=== PATIENT | female | born 1985 | race Caucasian/White ===

== ENCOUNTER → 2016-08-22 | Outpatient (CLI) | payer OTHER ==
[~2016-08-22] MED LIST: MTR600X PO
[2016-08-22 19:00] LABS: URINE APPEARANCE CLEAR (CLEAR); URINE BILIRUBIN NEG (NEG); URINE COLOR YELLOW; URINE EPITHELIAL CELL AUTO >30 /lpf (0-5); URINE NITRITE NEG (NEG); URINE SPECIFIC GRAVITY 1.022 (1.000-1.030); UROBILINOGEN NEG (NEG)
[2016-08-22 19:05] LABS: MANUAL MICROSCOPIC REQUIRED? NO; REVIEW REQ? NO
== END | disposition home or self-care (01) ==
LOC: C.LABSPEC 16:01
PROVIDERS: ATTEND Obstetrics & Gynecology
DX: O09.299 Supervision of pregnancy with other poor reproductive or obstetric history, unspecified trimester (principal)

== ENCOUNTER → 2016-08-29 | Outpatient (CLI) | payer OTHER ==
[2016-09-02 07:06] LABS: CHLAMYDIA TRACH RNA*** NOT DETECTED (NOT DETECTED); GC (NEIS GONORRHOEAE)RNA** NOT DETECTED (NOT DETECTED)
== END | disposition home or self-care (01) ==
LOC: C.LABSPEC 16:30
PROVIDERS: ATTEND Obstetrics & Gynecology
DX: O09.299 Supervision of pregnancy with other poor reproductive or obstetric history, unspecified trimester (principal); Z3A.00 Weeks of gestation of pregnancy not specified

== ENCOUNTER → 2016-08-29 | Outpatient (CLI) | payer OTHER | END | disposition home or self-care (01) | LOC: C.PAPS 08:48 | PROVIDERS: ATTEND Obstetrics & Gynecology | DX: O09.299 Supervision of pregnancy with other poor reproductive or obstetric history, unspecified trimester (principal); Z3A.00 Weeks of gestation of pregnancy not specified ==

== ENCOUNTER → 2016-08-29 | Outpatient (CLI) | payer OTHER ==
[2016-08-29 17:46] LABS: BASO % 0.2 %; BASO ABS # 0.02 K/uL (0-0.2); COMPLETE YES; EOS % 1.4 %; HEMATOCRIT 39.1 % (37-47); IG% 0.3 %; LYMPH % 27.7 %; LYMPH ABS # 3.01 K/uL (1.2-3.4); MEAN CELL VOLUME 91.6 fL (80-100); MEAN CORPUSCULAR HEMOGLOBIN 30.7 pg (25-34); MEAN CORPUSCULAR HGB CONC 33.5 g/dl (32-36); MEAN PLATELET VOLUME 11.4 fL (7.4-10.4); MONO % 7.1 %; NEUT % 63.3 %; PLATELET COUNT 277 K/uL (130-400); RED BLOOD COUNT 4.27 M/uL (4.2-5.4); WHITE BLOOD COUNT 10.88 K/uL (4.8-10.8)
== END | disposition home or self-care (01) ==
LOC: C.LAB1850 15:46
PROVIDERS: ATTEND Obstetrics & Gynecology
DX: O09.299 Supervision of pregnancy with other poor reproductive or obstetric history, unspecified trimester (principal); Z3A.00 Weeks of gestation of pregnancy not specified

== ENCOUNTER → 2016-10-26 | Outpatient (CLI) | payer OTHER ==
[2016-10-26 17:45] LABS: GTGD 50 Grams
== END | disposition home or self-care (01) ==
LOC: C.LAB1850 14:32
PROVIDERS: ATTEND Obstetrics & Gynecology
DX: O09.291 Supervision of pregnancy with other poor reproductive or obstetric history, first trimester (principal); Z3A.00 Weeks of gestation of pregnancy not specified

== ENCOUNTER → 2017-01-16 | Outpatient (CLI) | payer OTHER ==
[2017-01-16 15:37] LABS: HEMATOCRIT 34.2 % (37-47)
[2017-01-16 16:48] LABS: MANUAL MICROSCOPIC REQUIRED? YES; URINE APPEARANCE TURBID (CLEAR); URINE BILIRUBIN NEG (NEG); URINE COLOR YELLOW; URINE NITRITE NEG (NEG); UROBILINOGEN NEG (NEG)
[2017-01-16 16:52] LABS: REVIEW REQ? NO
[2017-01-16 17:30] LABS: URINE AMORPHOUS SEDIMENT PRESENT (NONE PRSENT); URINE BACTERIA NEG (NEG); URINE RBC 0-4 /hpf (0-4)
[2017-01-16 19:25] LABS: GTGD 50 Grams
== END | disposition home or self-care (01) ==
LOC: C.LAB1850 14:24
PROVIDERS: ATTEND Obstetrics & Gynecology
DX: Z34.83 Encounter for supervision of other normal pregnancy, third trimester (principal); Z3A.00 Weeks of gestation of pregnancy not specified

== ENCOUNTER → 2017-03-13 | Outpatient (CLI) | payer OTHER | END | disposition home or self-care (01) | LOC: C.LABSPEC 16:13 | PROVIDERS: ATTEND Obstetrics & Gynecology | DX: Z34.83 Encounter for supervision of other normal pregnancy, third trimester (principal); Z3A.00 Weeks of gestation of pregnancy not specified ==

== ENCOUNTER 2017-03-28 19:31 | Inpatient (IN) | payer OTHER ==
[~2017-03-28] VITALS: Ht 162.6 cm; Wt 68.2 kg
[2017-03-28] MEDS ORDERED: LACTATED RINGER'S 1000ML 1,000 ML IV SCH (20:12)
[2017-03-28] MEDS ORDERED: LACTATED RINGER'S 1000ML 1,000 ML IV PRN (20:12)
[2017-03-28 20:41] LABS: HEMATOCRIT 36.5 % (37-47); HEMOGLOBIN 12.2 g/dL (12.0-16.0); MEAN CORPUSCULAR HEMOGLOBIN 29.4 pg (25-34); MEAN CORPUSCULAR HGB CONC 33.4 g/dl (32-36); MEAN PLATELET VOLUME 11.6 fL (7.4-10.4); PLATELET COUNT 319 K/uL (130-400); RED CELL DISTRIBUTION WIDTH CV 13.7 % (11.5-14.5); RED CELL DISTRIBUTION WIDTH SD 43.9 fL (36.4-46.3); WHITE BLOOD COUNT 14.87 K/uL (4.8-10.8)
[2017-03-28 20:45] VITALS: Ht 162.6 cm; Wt 68.2 kg
[2017-03-28] MEDS ORDERED: EpHEDrine SULFATE INJ 50 MG/ML AMP ONE (21:06)
[2017-03-28] MEDS ORDERED: BUPIVACAINE 0.25% 30 ML VIAL ONE (21:06)
[2017-03-28] MEDS ORDERED: FENTANYL 2MCG/ML ROPIV 1.25MG/ML 100ML BAG EPI ONE (21:07)
[2017-03-28] MEDS ORDERED: FENTANYL CITRATE INJ 50 MCG/1 ML 2 ML VIAL ONE (21:07)
[2017-03-28] MEDS ORDERED: NALOXONE HCL INJ 1 MG in SODIUM CHLORIDE 0.9% 1000ML 1,000 ML IV PRN (22:03)
[2017-03-28] MEDS ORDERED: LACTATED RINGER'S 1000ML 500 ML IV PRN (22:03)
[2017-03-28] MEDS ORDERED: NALOXONE HCL INJ 0.4 MG/1 ML VIAL/CARP IV PRN (22:15)
[2017-03-28] MEDS ORDERED: EpHEDrine SULFATE INJ 50 MG/ML AMP IV PRN (22:15)
[2017-03-28] MEDS ORDERED: FENTANYL 2MCG/ML ROPIV 1.25MG/ML 100ML BAG EPI PRN (22:15)
[2017-03-28] MEDS ORDERED: DiphenhydrAMINE HCL 50 MG/ML VIAL IV PRN (22:15)
[2017-03-28] MEDS ORDERED: NALBUPHINE HCL INJ 10 MG/ML AMP IV PRN (22:15)
[2017-03-28] MEDS ORDERED: PRENCAP38 PO (22:51)
[2017-03-28] MEDS ORDERED: OXYTOCIN 30 UNITS/500ML NSS IV ONE (23:40)
[2017-03-29] VITALS (7 sets, daily range): BP systolic 108–144; BP diastolic 68–88; PULSE 73–92; TEMP 36.4–36.7; O2SAT 97–100
[2017-03-29] MEDS ORDERED: LACTATED RINGER'S 1000ML 1,000 ML IV SCH (05:26)
[2017-03-29] MEDS ORDERED: IBUPROFEN 600 MG TAB ONE (05:28)
[2017-03-29] MEDS ORDERED: ACETAMINOPHEN 325 MG TAB PO PRN (05:30)
[2017-03-29] MEDS ORDERED: LANOLIN OINT EXT PRN (05:30)
[2017-03-29] MEDS ORDERED: OXYTOCIN 30 UNITS/500ML NSS IV PRN (05:30)
[2017-03-29] MEDS ORDERED: SUPERCREAM 0.870 % 15GM JAR EXT PRN (05:30)
[2017-03-29] MEDS ORDERED: HYDROCORTISONE ACETATE 25 MG SUPP PR PRN (05:30)
[2017-03-29] MEDS ORDERED: OXYCODONE/ACETAMINOPHEN 5-325 TAB PO PRN (05:30)
[2017-03-29] MEDS ORDERED: BENZOCAINE 20% AER SPR 82.5 GM CAN EXT PRN (05:30)
--- NOTE | 2017-03-29 06:13 | Anesthesia Procedure Note ---
Anesthesia Epidural Removal Nt Date & Time Mar 29, 2017 at 06:13 Vital Signs Pain Intensity: 3.0 Vital Signs Past 12 Hours Date Time Temp Pulse Resp B/P (MAP) Pulse Ox O2 Delivery O2 Flow Rate FiO2 03/29/17 05:00 36.5 77 18 116/76 (89) 03/29/17 01:40 Room Air 03/29/17 01:40 36.6 87 18 120/81 (94) Notes Mental Status: alert / awake / arousable, participated in evaluation Nausea / Vomiting: adequately controlled Pain: adequately controlled Airway Patency, RR, SpO2: stable & adequate BP & HR: stable & adequate Hydration State: stable & adequate Neuraxial Anesthesia: was administered, sensory block is resolved Anesthetic Complications: no major complications apparent, pt satisfied with anesthetic care Epidural: removed without complications, with tip intact
[2017-03-29] MEDS: PRENATAL VITAMIN TAB PO SCH (08:39)
[2017-03-29] MEDS: DOCUSATE SODIUM 100 MG CAP PO SCH ×2 (08:39→19:45)
--- NOTE | 2017-03-29 08:40 | Discharge Instructions ---
Discharge Instructions Date of Service Mar 29, 2017. Admission Reason for Admission: Check Labor Discharge Discharge Diagnosis / Problem: Vaginal Delivery Discharge Goals Goal(s): Routine recovery after delivery Medications Continue Dispensed Medications: supercream, dermaplast, tucks, lansinoh Activity Recommendations Activity Limitations: per Instructions/Follow-up section . Instructions / Follow-Up Instructions / Follow-Up ACTIVITY RECOMMENDATIONS: * Gradual return to full activity over the next 2-3 weeks. * No lifting - nothing heavier than baby over the next 2-3 weeks. * Do not engage in vigorous exercise, sexual activity or sports until cleared by your physician. * Do not drive or operate any motorized equipment until cleared by your physician. * You may shower/bathe daily. MEDICATIONS: For discomfort or pain, you may use Acetaminophen (Tylenol), Ibuprofen (Advil), or Naproxen (Aleve) following the package directions. For constipation you may use Colace following the package directions. BREAST CARE: If you are not breast feeding: * Wear a supportive bra 24 hours a day for one to two weeks. * Avoid stimulating your breasts and nipples as much as possible during the first few weeks after delivery. * When taking a shower, have the warm water hit your back, not breasts. * When your breasts feel full, apply ice packs. Usually three to four times a day helps ease the discomfort. * Take a mild pain medication (Tylenol / Motrin) when you are uncomfortable. If breast feeding: * Use breast milk to lubricate nipples. Lansinoh cream may be used for sore nipples. You do not need to remove cream prior to breast feeding. If using a different brand of cream, check the label for directions regarding removal of cream prior to nursing. * Wear a supportive bra. * If having problems with breasts or breast feeding, call a construction safety consultant or your health care provider. EPISIOTOMY CARE: After delivery, if you have an episiotomy (stitches), the following steps will ease discomfort and aid healing. * For the first 24 hours after delivery, place ice packs next to your episiotomy to help reduce swelling. * After the first 24 hour-period, sitz baths, either portable or in the tub, are suggested. A shower with a shower arm sprayed over the episiotomy may be comforting. * Katharine care should be done after each voiding and bowel movement. Squirt warm water from a plastic bottle over the perineum (region of the body between the anus and urinary opening) and pat dry. * Use Dermoplast to ease discomfort. Shake container. [place] directly over the episiotomy. Place a Tucks on a clean sanitary pad next to your episiotomy. SPECIAL CARE INSTRUCTIONS: When you are discharged from the hospital, it is important for you to follow the instructions listed below: * During the first week at home, you should be able to care for yourself and your baby. In addition, the usual light household activities are encouraged. * Limit your activities to the way you feel. Do not try to clean the house or move furniture. Be sensible. * If you actively engage in sports and have done so up until the time of your delivery, you may resume these activities as soon as you feel able. This may take up to one month or even longer. Use good judgment. * Continue to take your vitamins for at least six weeks after the of your baby. * Your diet need not be limited unless you were on a special diet before your delivery. Breast-feeding mothers need around 2500 calories per day and at least 64-80 ounces of fluid per day (8 to 10 glasses). * You should eat foods from the four major food groups. Crash diets or fad diets are to be avoided. Eating lean meats, fresh fruits and vegetables, low-fat dairy products, high fiber foods and a regular exercise program, will help you get back to your pre- weight without putting your health at risk. * Constipation is sometimes a problem after delivery. Take a mild laxative as needed. If breast feeding, Milk of Magnesia is acceptable to use. You may use a suppository or Fleets enema if no episiotomy. * A daily shower or tub bath is suggested. Be sure to thoroughly and gently dry the perineum. * A bloody vaginal discharge will usually continue until around four weeks post . A small amount of bleeding may continue for as long as six weeks. Vaginal discharge changes from the bright red bleeding after delivery to pink then brownish and finally yellowish-pink before becoming white and disappearing. * Bleeding may increase with activity. Your first period may come in 4-8 weeks. If you are breast feeding, your period may be delayed even longer. * [place] (sex) can begin whenever both you and your partner feel comfortable and do not have any form of genital infection. It is recommended that you wait at least six weeks for internal and external healing to occur. If you have questions, please talk to your health care practitioner. A condom should be used to prevent infection and . * Foreplay, gentle intercourse and lubrication is very important the first several times to prevent pain. A water-based lubricant such as K-Y jelly or Astroglide may be used. * If you have RH negative blood and your baby is RH positive, you will receive RHOGAM by injection prior to discharge. The nurse will give you a card to keep with you that has the date and place that you received RHOGAM after delivery. * During your care, you had a Rubella screen done to check for the presence of rubella antibodies in your blood. If your test was negative, you will receive a Rubella vaccine prior to discharge. This vaccine may cause a fever, soreness at the injection site and flu-like symptoms. If these symptoms persist, notify your health care practitioner. is not advised for one month after a Rubella vaccine. * Verbalizes understanding of car seat law as reviewed with patient nursing. * Car Seat hand-out given and reviewed with patient by nursing. * Shaken baby information reviewed with patient by nursing. Call you doctor if: * Heavy bleeding (saturating several pads an hour) or passing clots the size of your fist. * A fever >101 degrees F (38.3 degrees C) on two occasions four hours apart and /or chills. * Unusual pain in the pelvic or vaginal areas. * "Baby Blues" lasting longer than two weeks. If you have any questions or concerns, call your health care practitioner at . FOLLOW UP VISIT: * Please call the office at to schedule a 6 week examination. It is important you keep this appointment. It is important for you to make arrangements for either yearly or twice yearly check-ups thereafter. Current Hospital Diet Patient's current hospital diet: Regular OB Diet Discharge Diet Recommended Diet: Regular Diet Pending Studies Studies pending at discharge: no Medical Emergencies . Who to Call and When: Medical Emergencies: If at any time you feel your situation is an emergency, please call 911 immediately. . Non-Emergent Contact Non-Emergency issues call your: Primary Care Provider . . "Provider Documentation" section prepared by Tomás Mcnair. . VTE Core Measure Inpt VTE Proph given/why not?: Treatment not indicated
[2017-03-29] MEDS: IBUPROFEN 600 MG TAB PO PRN ×3 (12:44→23:38)
[2017-03-30] MEDS: IBUPROFEN 600 MG TAB PO PRN ×2 (06:30→14:05)
--- NOTE | 2017-03-30 06:43 | Progress Note ---
Subjective Mar 30, 2017. Subjective conversation w/ patient (Patient seen and examined at the bedside. No complaints reported) Ambulation: ambulating normally Voiding: no voiding problems Passing Gas: Yes Diet Tolerance: Regular Diet Lochia: Moderate Feeding Type: Breast Feeding Pain: 3/10 in severity, well controlled with pain meds Review of Systems Constitutional: No fever, No chills, No sweats Respiratory: No cough, No shortness of breath Cardiac: No chest pain, No edema Breast: + breast pain (mild pain w/) Abdomen: No pain, No nausea, No vomiting Female : No dysuria Objective Vital Signs Date Time Temp Pulse Resp B/P (MAP) Pulse Ox O2 Delivery O2 Flow Rate FiO2 03/29/17 23:30 Room Air 03/29/17 23:30 36.7 76 18 115/75 (88) Room Air 03/29/17 19:45 36.6 92 16 108/68 (81) Room Air 03/29/17 15:25 Room Air 03/29/17 15:25 36.4 78 16 116/76 (89) Room Air 03/29/17 11:55 36.5 73 18 144/88 (106) 100 Room Air 03/29/17 07:45 Room Air 03/29/17 07:45 36.5 73 18 121/76 (91) 97 Room Air Physical Exam General Appearance: WELL-APPEARING, WD/WN, NO APPARENT DISTRESS Respiratory/Chest: chest non-tender, lungs clear, normal breath sounds, no respiratory distress, no accessory muscle use Cardiovascular: regular rate, rhythm, no edema, no gallop, no JVD, no murmur Abdomen: normal bowel sounds, non tender, soft Fundus: Firm, Non-Tender, Relation to Umbilicus (1 cm below) Extremities: non-tender, normal inspection, no pedal edema, no calf tenderness Laboratory Results Last 24 Hours Test 03/30/17 06:34 Medications Current Inpatient Medications Medications (Trade) Dose Ordered Sig/Moe Route Start Time Stop Time Status Last Admin Dose Admin Lactated Ringer's 1,000 ml @ 125 mls/hr Q8H IV 03/28/17 20:12 03/30/17 20:11 03/28/17 20:53 125 MLS/HR Lactated Ringer's 1,000 ml @ 999 mls/hr Q1H1M PRN IV 03/28/17 20:12 04/27/17 20:11 03/28/17 20:57 999 MLS/HR Lactated Ringer's 1,000 ml @ 125 mls/hr Q8H IV 03/29/17 05:26 04/28/17 05:25 Oxytocin (Pitocin IV) 30 units UD PRN IV 03/29/17 05:30 04/28/17 05:29 Benzocaine (Dermoplast Aero Spr) 1 appln PRN PRN EXT 03/29/17 05:30 04/28/17 05:29 Cocaine HCl (Supercream 0.870% Cr) BID PRN EXT 03/29/17 05:30 04/12/17 05:29 Hydrocortisone Acetate (Anusol Hc Supp) 25 mg BID PRN TX 03/29/17 05:30 04/28/17 05:29 Lanolin (Lanolin Oint) PRN PRN EXT 03/29/17 05:30 04/28/17 05:29 Prenat Multivit/ Student Services Coordinator/Iron/Folic Ac ( Vitamin Tab) 1 tab DAILY PO 03/29/17 08:00 04/28/17 07:59 03/29/17 08:39 1 TAB Ibuprofen (Motrin Tab) 600 mg Q4H PRN PO 03/29/17 05:30 04/28/17 05:29 03/30/17 06:30 600 MG Acetaminophen (Tylenol Tab) 650 mg Q6H PRN PO 03/29/17 05:30 04/28/17 05:29 03/29/17 19:48 650 MG Oxycodone/ Acetaminophen (Percocet 5-325mg Tab) 1 tab Q4H PRN PO 03/29/17 05:30 04/12/17 05:29 Docusate Sodium (coLACE CAP) 100 mg BID PO 03/29/17 08:00 04/28/17 07:59 03/29/17 19:45 100 MG Assessment and Plan Post- Day#: 1 Continue Routine Care: 32 year old [id number] s/p NVD day 1 - patient doing well clinically - O+, rubella immune, GBS -ve - continue encouraging ambulation and - monitor lochia - vitals reviewed and wnl - continue analgesia prn - Hgb 12.2 on arrival, will check today's Hgb when available - will res counselor pt on discharge instructions as she is ready for d/c today Resident Physician Supervision Note: I interviewed and examined the patient. Discussed with Dr. Mcnair and agree with findings and plan as documented in the note. Any exceptions or clarifications are listed here: [None] Documented By: Ruben Riojas Resident Tracking Resident Involvement: Resident Care Provided Care Provided: OB Delivery
[2017-03-30 06:48] LABS: HEMATOCRIT 30.8 % (37-47)
[2017-03-30] MEDS: DOCUSATE SODIUM 100 MG CAP PO SCH (07:43)
[2017-03-30] MEDS: PRENATAL VITAMIN TAB PO SCH (07:43)
[2017-03-30 07:45] VITALS: BP 115/74; PULSE 67; TEMP 36.3
[2017-03-30 15:02] VITALS: BP_DIAS 74; PULSE 67; TEMP 36.3
--- NOTE | 2017-04-12 07:46 | Vaginal Delivery Summary ---
Vaginal Delivery Summary Renuka Herzog underwent an uncomplicated at 2336pm. See QS documentation for further details. Mother and tolerated delivery well.
== END 2017-03-30 15:02 | disposition home or self-care (01) | DRG 775 ==
LOC: C.OPB 19:31 → C.LD 19:31 → C.OPB 20:13 → C.OBG 03-29 01:46
PROVIDERS: ADMIT Obstetrics & Gynecology; ATTEND Obstetrics & Gynecology
PROC: 10E0XZZ Delivery of Products of Conception, External Approach (ICD-10-PCS; principal; 2017-03-28)
DX: O80 Encounter for full-term uncomplicated delivery (principal); Z3A.38 38 weeks gestation of pregnancy; Z37.0 Single live birth

== ENCOUNTER 2017-05-23 20:38 | Emergency (ER) | payer OTHER ==
[~2017-05-23] VITALS: Ht 162.6 cm; Wt 63.0 kg
[~2017-05-23 20:38] MED LIST changes: +PRENCAP38 PO
[2017-05-23 20:46] VITALS: TEMP 36.8; Ht 162.6 cm; Wt 63.0 kg
[2017-05-23] MEDS ORDERED: SODIUM CHLORIDE 0.9% 1000ML 1,000 ML IV STA (21:05)
[2017-05-23] MEDS ORDERED: FAMOTIDINE 20 MG TAB PO ONE (21:15)
--- NOTE | 2017-05-23 21:21 | EMERGENCY ROOM VISIT NOTE ---
History Report prepared by Barbara: Jodi Rebollar Under the Supervision of: Dr. Hipolito Agudelo M.D. First contact with patient: 20:49 Chief Complaint: ABDOMINAL PAIN Stated Complaint: PAIN IN UPPER ABDONEN AND BACK, VOMITING Nursing Triage Summary: Pt presents with upper abd pain/epigastric pain into back. N/V/D. Sx x 1 month. Unable to state if anything makes pain better/worse. Pt is 2 mos post . History of Present Illness The patient is a 32 year old female who presents to the Emergency Room with complaints of intermittent abdominal pain starting a month ago. The patient states that the pain is in her upper abdomen. She states that she came to the ED today because it happened twice today and was the worst it has ever been. She states that the last time she had it was an hour ago, but notes that it is currently not occurring. She states that there appears to be no pattern when it comes on and sometimes it wakes her up out of her sleep. The patient states that she has not seen her PCP for it because she thought it was just heart burn. She notes that it happened twice during her before the month of it started. The patient states that the pain usually goes away after she vomits. She states that it doesn't happen every time, but does the majority of the time. The patient complains of chills. The patient denies cough, fever, congestion, urinary symptoms, taking anything for the pain, and any abdominal surgeries. The patient notes that she had a normal vaginal delivery in February and drinks once a month. Source of History: patient Onset: a month ago Position: abdomen Timing: intermittent Modifying Factors (Relieving): other (vomiting) Associated Symptoms: + chills, + vomiting, No fevers, No cough, No urinary symptoms Note: The patient denies congestion. Review of Systems See HPI for pertinent positives and negatives. A total of ten systems were reviewed and were otherwise negative. Past Medical & Surgical Medical Problems: (1) Vaginal delivery Family History Patient reports no known family medical history. Social History Smoking Status: Former Smoker Alcohol Use: occasionally Housing Status: lives with family Occupation Status: employed Current/Historical Medications Scheduled PRN Ibuprofen (Advil), 400 MG PO DAILY PRN for Pain Allergies Coded Allergies: No Known Allergies (Unverified , 03/30/17) Physical Exam Vital Signs Date Time Temp Pulse Resp B/P (MAP) Pulse Ox O2 Delivery O2 Flow Rate FiO2 05/23/17 23:45 66 18 124/81 100 05/23/17 22:33 82 18 117/70 100 Room Air 05/23/17 20:46 36.8 95 18 138/87 100 Room Air Physical Exam GENERAL: Awake, alert, well-appearing, in no distress HENT: Normocephalic, atraumatic. Oropharynx unremarkable. EYES: Normal conjunctiva. Sclera non-icteric. NECK: Supple. No nuchal rigidity. FROM. No JVD. RESPIRATORY: Clear to auscultation. CARDIAC: Regular rate, normal rhythm. Extremities warm and well perfused. Pulses equal. ABDOMEN: Soft, non-distended. No tenderness to palpation. No rebound or guarding. No masses. RECTAL: Deferred. MUSCULOSKELETAL: Chest examination reveals no tenderness. The back is symmetrical on inspection without obvious abnormality. There is no CVA tenderness to palpation. No joint edema. LOWER EXTREMITIES: Calves are equal size bilaterally and non-tender. No edema. No discoloration. NEURO: Normal sensorium. No sensory or motor deficits noted. SKIN: No rash or jaundice noted. Medical Decision & Procedures ER Provider Diagnostic Interpretation: Radiology results as stated below per my review and radiologist interpretation: BEDSIDE US: Ultrasound was performed by me and interpreted by me. Single mobile gallstone. No pericholecystic fluid. CBD grossly normal. Laboratory Results 05/23/17 21:00 Red Blood Count 4.43, Mean Corpuscular Volume 91.4, Mean Corpuscular Hemoglobin 29.6, Mean Corpuscular Hemoglobin Concent 32.3, Mean Platelet Volume 10.6, Neutrophils (%) (Auto) 48.2, Lymphocytes (%) (Auto) 41.1, Monocytes (%) (Auto) 8.2, Eosinophils (%) (Auto) 2.0, Basophils (%) (Auto) 0.3, Neutrophils # (Auto) 4.48, Lymphocytes # (Auto) 3.83, Monocytes # (Auto) 0.76, Eosinophils # (Auto) 0.19, Basophils # (Auto) 0.03 05/23/17 21:00 Test 05/23/17 21:00 White Blood Count 9.31 K/uL (4.8-10.8) Red Blood Count 4.43 M/uL (4.2-5.4) Hemoglobin 13.1 g/dL (12.0-16.0) Hematocrit 40.5 % (37-47) Mean Corpuscular Volume 91.4 fL (80-100) Mean Corpuscular Hemoglobin 29.6 pg (25-34) Mean Corpuscular Hemoglobin Concent 32.3 g/dl (32-36) Platelet Count 398 K/uL (130-400) Mean Platelet Volume 10.6 fL (7.4-10.4) Neutrophils (%) (Auto) 48.2 % Lymphocytes (%) (Auto) 41.1 % Monocytes (%) (Auto) 8.2 % Eosinophils (%) (Auto) 2.0 % Basophils (%) (Auto) 0.3 % Neutrophils # (Auto) 4.48 K/uL (1.4-6.5) Lymphocytes # (Auto) 3.83 K/uL (1.2-3.4) Monocytes # (Auto) 0.76 K/uL (0.11-0.59) Eosinophils # (Auto) 0.19 K/uL (0-0.5) Basophils # (Auto) 0.03 K/uL (0-0.2) RDW Standard Deviation 46.0 fL (36.4-46.3) RDW Coefficient of Variation 13.8 % (11.5-14.5) Immature Granulocyte % (Auto) 0.2 % Immature Granulocyte # (Auto) 0.02 K/uL (0.00-0.02) Urine Color YELLOW Urine Appearance CLOUDY (CLEAR) Urine pH 6.0 (4.5-7.5) Urine Specific [place] 1.013 (1.000-1.030) Urine Protein NEG (NEG) Urine Glucose (UA) NEG (NEG) Urine Ketones NEG (NEG) Urine Occult Blood NEG (NEG) Urine Nitrite NEG (NEG) Urine Bilirubin NEG (NEG) Urine Urobilinogen NEG (NEG) Urine Leukocyte Esterase TRACE (NEG) Urine WBC (Auto) 10-30 /hpf (0-5) Urine RBC (Auto) 0-4 /hpf (0-4) Urine Hyaline Casts (Auto) 1-5 /lpf (0-5) Urine Epithelial Cells (Auto) >30 /lpf (0-5) Urine Bacteria (Auto) 1+ (NEG) Urine Test NEG (NEG) Anion Gap 5.0 mmol/L (3-11) Est Creatinine Clear Calc Drug Dose 74.8 ml/min Estimated GFR () 93.2 Estimated GFR (Non- 80.4 BUN/Creatinine Ratio 7.8 (10-20) Calcium Level 8.6 mg/dl (8.5-10.1) Total Bilirubin 0.2 mg/dl (0.2-1) Direct Bilirubin < 0.1 mg/dl (0-0.2) Aspartate Amino Transf (AST/SGOT) 21 U/L (15-37) Alanine Aminotransferase (ALT/SGPT) 38 U/L (12-78) Alkaline Phosphatase 60 U/L (45-117) Total Protein 7.4 gm/dl (6.4-8.2) Albumin 3.9 gm/dl (3.4-5.0) Lipase 187 U/L (73-393) Date/Time Source Procedure Growth Status 05/23/17 21:00 Urine , Clean Catch Urine Culture - Final THREE TYPES OF ORGANSIMS PRESENT, ALL... Complete Laboratory results reviewed by me Medications Administered Medications (Trade) Dose Ordered Sig/Moe Route Start Time Stop Time Status Last Admin Dose Admin Sodium Chloride 1,000 ml @ 999 mls/hr Q1H1M STAT IV 05/23/17 21:05 05/23/17 22:05 DC 05/23/17 21:38 999 MLS/HR Famotidine (Pepcid Tab) 20 mg NOW ONCE PO 05/23/17 21:15 05/23/17 21:16 DC 05/23/17 21:38 20 MG ED Course 4: The patient was evaluated in room B6. A complete history and physical exam was performed. 2324: Bedside Ultrasound revealed single mobile gallstone. No pericholecystic fluid. CBD grossly normal. I reevaluated the patient. Discussed results and discharge instructions: She verbalized understanding and agreement. The patient is ready for discharge. Medical Decision I reviewed the patient's past medical history, medications, and the nursing notes as described above. Differential diagnosis: Etiologies such as appendicitis, diverticulitis, PUD, biliary pathology, UTI, pancreatitis, obstruction, mesenteric ischemia, aortic pathology, infections, inflammatory bowel disease, renal colic, as well as others were entertained. This is a 32-year-old woman with a past medical history of a recent in February who presents emergency department with 1 month of intermittent epigastric pain per hpi. On arrival the patient is well-appearing in no acute distress, afebrile stable vital signs. She denies any symptoms at this time. On exam her abdomen soft nontender nondistended. Labs are unremarkable and CBC within normal limits. Chemistry additionally unremarkable with no evidence of obstructive pathology. Bedside ultrasound demonstrates a single mobile stone with no pericholecystic fluid and grossly normal CBD and no sonographic Escobedo sign. UA appears dirty denies any symptoms thus we agreed to wait for cultures. Otherwise given that the patient is asymptomatic at this time no evidence of infection or biliary obstruction patient was counseled on diet modification and follow up with her PCP. Patient was given strict return instructions should her symptoms become worse. Findings and plan for follow-up reviewed with patient. Patient agreeable and d/c'd per discharge instructions. Medication Reconcilliation Current Medication List: was personally reviewed by me Blood Pressure Screening Patient's blood pressure: Normal blood pressure Blood pressure disposition: Did not require urgent referral Impression Primary Impression: Cholelithiasis Scribe Attestation The scribe's documentation has been prepared under my direction and personally reviewed by me in its entirety. I confirm that the note above accurately reflects all work, treatment, procedures, and medical decision making performed by me. Departure Information Dispostion Home / Self-Care Referrals Good Elena M.D. (PCP) Forms HOME CARE DOCUMENTATION FORM, IMPORTANT VISIT INFORMATION Patient Instructions ED Gallstone W Biliary Colic, My [facility] Additional Instructions Please follow up with your primary care physician in the next week for re- evaluation and possible repeat ultrasound if symptoms do not improve with diet modification. You were found to have a gallstone which likely is the cause of your symptoms. Otherwise, your exam, lab results, and bedside ultrasound did not show signs of an emergent condition at this time. Adjust your diet and avoid fatty foods to help with your symptoms. Drink plenty of fluids to ensure hydration. Return to the emergency department for worsening symptoms as described in the accompanying instructions.
[2017-05-23] MEDS ORDERED: IBUP-1050 PO (21:24)
[2017-05-23 21:30] LABS: ALBUMIN 3.9 gm/dl (3.4-5.0); ALT/SGPT 38 U/L (12-78); BLOOD UREA NITROGEN 7 mg/dl (7-18); CALCIUM 8.6 mg/dl (8.5-10.1); CARBON DIOXIDE 27 mmol/L (21-32); CREATININE 0.95 mg/dl (0.60-1.20); GLUCOSE 91 mg/dl (70-99); LIPASE 187 U/L (73-393); POTASSIUM 3.7 mmol/L (3.5-5.1); SODIUM 139 mmol/L (136-145)
[2017-05-23 21:32] LABS: BASO % 0.3 %; BASO ABS # 0.03 K/uL (0-0.2); EOS ABS # 0.19 K/uL (0-0.5); HEMATOCRIT 40.5 % (37-47); HEMOGLOBIN 13.1 g/dL (12.0-16.0); IG# 0.02 K/uL (0.00-0.02); LYMPH % 41.1 %; LYMPH ABS # 3.83 K/uL (1.2-3.4); MEAN CELL VOLUME 91.4 fL (80-100); MEAN CORPUSCULAR HEMOGLOBIN 29.6 pg (25-34); MEAN CORPUSCULAR HGB CONC 32.3 g/dl (32-36); MEAN PLATELET VOLUME 10.6 fL (7.4-10.4); MONO % 8.2 %; MONO ABS # 0.76 K/uL (0.11-0.59); NEUT % 48.2 %; NEUT ABS # 4.48 K/uL (1.4-6.5); PLATELET COUNT 398 K/uL (130-400); RED CELL DISTRIBUTION WIDTH CV 13.8 % (11.5-14.5); WHITE BLOOD COUNT 9.31 K/uL (4.8-10.8)
[2017-05-23 21:33] LABS: ALKALINE PHOSPHATASE 60 U/L (45-117); AST/SGOT 21 U/L (15-37); TOTAL PROTEIN 7.4 gm/dl (6.4-8.2)
[2017-05-23 23:45] VITALS: BP 124/81; PULSE 66; O2SAT 100
== END 2017-05-23 23:45 | disposition home or self-care (01) ==
LOC: C.EDB 20:40
DX: K80.20 Calculus of gallbladder without cholecystitis without obstruction (principal); Z87.891 Personal history of nicotine dependence